=== PATIENT | female | born 1955 | race Caucasian/White ===

== ENCOUNTER 2017-09-01 21:36 | Emergency (ER) | payer BC ==
[2017-09-01 21:44] VITALS: RESP 18
[2017-09-01] MEDS ORDERED: MORPHINE SULFATE 5 MG/ML SYRINGE IVP STA (22:20)
[2017-09-01] MEDS ORDERED: HYDROmorphone 1 MG/ML 1 ML SYRINGE IVP STA (22:25)
--- NOTE | 2017-09-01 22:25 | ED ---
General Adult HPI - General Chief complaint: Chest Pain Stated complaint: chest pain Time Seen by Provider: 09/01/17 21:50 Source: patient, family, RN notes reviewed, old records reviewed Mode of arrival: ambulatory Limitations: no limitations - History of Present Illness Initial comments: 62-year-old female presents for evaluation of chest pain. Pain is been present for approximately 4 hours. With sudden in onset, woke patient from sleep. Describes the pain as constant, sharp in nature. Pain is worse with deep inspiration. Substernal and left-sided chest as well as epigastrium. Pain is severe at the time my evaluation. Denies nausea or diaphoresis. Denies fever or chills. Denies cough. Patient was well prior to the onset of this pain with no symptoms. Patient has past medical history of hypertension hypercholesterolemia, no known history of coronary artery disease. She does have history of venous occlusion in her lower extremity status post stenting, this was secondary to arterial compression of the vein. Patient is not on blood thinners at this time, she does take daily aspirin. - Related Data Home Medications Medication Instructions Recorded Confirmed Aspirin [Adult Low Dose Aspirin EC] 81 mg PO DAILY 09/01/17 09/01/17 Levothyroxine Sodium [Synthroid] 100 mcg PO DAILY 09/01/17 09/01/17 Multivitamin/Iron/Folic Acid 1 tab PO DAILY 09/01/17 09/01/17 [Centrum Adults Tablet] Rosuvastatin [Crestor] 10 mg PO MOWEFR 09/01/17 09/01/17 Valsartan [Diovan] 160 mg PO HS 09/01/17 09/01/17 diphenhydrAMINE HCL [Benadryl] 25 mg PO HS 09/01/17 09/01/17 Allergies Allergy/AdvReac Type Severity Reaction Status Date / Time Penicillins Allergy Rash/Hives Verified 09/01/17 22:09 adhesive tape AdvReac Rash/Hives Verified 09/01/17 22:09 Review of Systems ROS Statement: Those systems with pertinent positive or pertinent negative responses have been documented in the HPI. ROS Other: All systems not noted in ROS Statement are negative. Past Medical History Past Medical History: Hyperlipidemia, Hypertension, Thyroid Disorder History of Any Multi-Drug Resistant Organisms: None Reported Past Surgical History: Hysterectomy, Joint Replacement, Orthopedic Surgery Additional Past Surgical History / Comment(s): bilateral knee replace Past Psychological History: No Psychological Hx Reported Smoking Status: Never smoker Past Alcohol Use History: None Reported Past Drug Use History: None Reported General Exam Limitations: no limitations General appearance: alert, in no apparent distress Head exam: Present: atraumatic, normocephalic Eye exam: Present: normal appearance, PERRL ENT exam: Present: normal exam Neck exam: Present: normal inspection. Absent: tenderness, meningismus Respiratory exam: Present: normal lung sounds bilaterally. Absent: respiratory distress, wheezes Cardiovascular Exam: Present: regular rate, normal rhythm. Absent: rubs GI/Abdominal exam: Present: soft, tenderness (Epigastric tenderness to palpation ). Absent: guarding, rebound Extremities exam: Present: normal inspection, normal capillary refill. Absent: pedal edema, calf tenderness Back exam: Present: normal inspection, full ROM. Absent: tenderness Neurological exam: Present: alert, oriented X3, CN II-XII intact. Absent: motor sensory deficit Psychiatric exam: Present: normal affect, normal mood. Absent: anxious, flat affect Skin exam: Present: warm, dry, intact. Absent: cyanosis, diaphoretic Course Vital Signs 09/01/17 09/01/17 21:39 22:01 Temperature 98.6 F Pulse Rate 91 Pulse Rate [ 87 [employer] ] Respiratory 18 Rate Blood Pressure 152/64 O2 Sat by Pulse 99 Oximetry - Reevaluation(s) Reevaluation #1: 09/01/17 23:53 Chest x-ray reviewed and discussed with radiology, concern for intraperitoneal free air. CT is obtained for further evaluation. EKG Findings - EKG Comments: EKG Findings:: EKG shows normal sinus rhythm, ventricular rate 87, MA interval 156, QRS duration 84, QTC 421 no signs of ischemia Medical Decision Making - Medical Decision Making 62 female presenting with sudden onset epigastric and chest pain. Patient is tender in the epigastrium. Ultrasound obtained, negative for acute cholecystitis or gallstones. Chest x-ray shows no acute intrathoracic process does show free intraperitoneal air. This is discussed with the radiologist, he is uncertain recommends further imaging. CT is obtained, this does show intraperitoneal air no obvious source, there is a 2.5 cm dilated loop of small bowel, no signs of obstruction. Laboratory studies reveal elevated white blood cell count 13.6, stable hemoglobin, d-dimer is elevated, patient does also receive CT angiography which is negative for PE or acute findings. Troponin negative, large reds within normal limits. Case is discussed with general surgery on-call Dr. Ames, given history of previous bariatric surgery, she recommends transfer for higher level of care. Case discussed with Dr. Noel at [facility]. He will accept transfer for further evaluation and treatment. Diagnosis: Ruptured hollow viscus with free intraperitoneal air. - Lab Data Result diagrams: 09/01/17 21:55 09/01/17 21:55 Lab Results 09/01/17 09/01/17 09/01/17 Range/Units 21:55 21:55 21:55 WBC 13.6 H (3.8-10.6) k/uL RBC 5.16 (3.80-5.40) m/uL Hgb 15.2 (11.4-16.0) gm/dL Hct 49.0 H (34.0-46.0) % MCV 94.9 (80.0-100.0) fL MCH 29.4 (25.0-35.0) pg MCHC 31.0 (31.0-37.0) g/dL RDW 13.8 (11.5-15.5) % Plt Count 290 (150-450) k/uL Neutrophils % 81 % Lymphocytes % 13 % Monocytes % 3 % Eosinophils % 1 % Basophils % 1 % Neutrophils # 11.1 H (1.3-7.7) k/uL Lymphocytes # 1.8 (1.0-4.8) k/uL Monocytes # 0.4 (0-1.0) k/uL Eosinophils # 0.2 (0-0.7) k/uL Basophils # 0.1 (0-0.2) k/uL PT (9.0-12.0) sec INR (<1.2) APTT (22.0-30.0) sec D-Dimer (<0.60) mg/L FEU Sodium 140 (137-145) mmol/L Potassium 4.4 (3.5-5.1) mmol/L Chloride 103 (98-107) mmol/L Carbon Dioxide 26 (22-30) mmol/L Anion Gap 11 mmol/L BUN 21 H (7-17) mg/dL Creatinine 0.70 (0.52-1.04) mg/dL Est GFR (MDRD) Af Amer >60 (>60 ml/min/1.73 sqM) Est GFR (MDRD) Non-Af >60 (>60 ml/min/1.73 sqM) Glucose 112 H (74-99) mg/dL Calcium 10.0 (8.4-10.2) mg/dL Magnesium 1.7 (1.6-2.3) mg/dL Total Bilirubin 0.5 (0.2-1.3) mg/dL AST 31 (14-36) U/L ALT 40 (9-52) U/L Alkaline Phosphatase 93 (38-126) U/L Total Creatine Kinase 52 (30-135) U/L CK-MB (CK-2) 0.7 (0.0-2.4) ng/mL CK-MB (CK-2) Rel Index 1.3 Troponin I <0.012 (0.000-0.034) ng/mL NT-Pro-B Natriuret Pep pg/mL Total Protein 7.5 (6.3-8.2) g/dL Albumin 4.5 (3.5-5.0) g/dL Amylase 84 (30-110) U/L Lipase 185 (23-300) U/L 09/01/17 09/01/17 Range/Units 21:55 21:55 WBC (3.8-10.6) k/uL RBC (3.80-5.40) m/uL Hgb (11.4-16.0) gm/dL Hct (34.0-46.0) % MCV (80.0-100.0) fL MCH (25.0-35.0) pg MCHC (31.0-37.0) g/dL RDW (11.5-15.5) % Plt Count (150-450) k/uL Neutrophils % % Lymphocytes % % Monocytes % % Eosinophils % % Basophils % % Neutrophils # (1.3-7.7) k/uL Lymphocytes # (1.0-4.8) k/uL Monocytes # (0-1.0) k/uL Eosinophils # (0-0.7) k/uL Basophils # (0-0.2) k/uL PT 9.7 (9.0-12.0) sec INR 1.0 (<1.2) APTT 23.2 (22.0-30.0) sec D-Dimer 1.16 H (<0.60) mg/L FEU Sodium (137-145) mmol/L Potassium (3.5-5.1) mmol/L Chloride (98-107) mmol/L Carbon Dioxide (22-30) mmol/L Anion Gap mmol/L BUN (7-17) mg/dL Creatinine (0.52-1.04) mg/dL Est GFR (MDRD) Af Amer (>60 ml/min/1.73 sqM) Est GFR (MDRD) Non-Af (>60 ml/min/1.73 sqM) Glucose (74-99) mg/dL Calcium (8.4-10.2) mg/dL Magnesium (1.6-2.3) mg/dL Total Bilirubin (0.2-1.3) mg/dL AST (14-36) U/L ALT (9-52) U/L Alkaline Phosphatase (38-126) U/L Total Creatine Kinase (30-135) U/L CK-MB (CK-2) (0.0-2.4) ng/mL CK-MB (CK-2) Rel Index Troponin I (0.000-0.034) ng/mL NT-Pro-B Natriuret Pep 22 pg/mL Total Protein (6.3-8.2) g/dL Albumin (3.5-5.0) g/dL Amylase (30-110) U/L Lipase (23-300) U/L Critical Care Time Critical Care Time: Yes Total Critical Care Time: 35 Disposition Clinical Impression: Free intraperitoneal air Disposition: OTHER INSTITUTION NOT DEFINED Condition: Serious Referrals: Nonstaff,Physician [Primary Care Provider] - 1-2 days Time of Disposition: 23:56 - Out of Hospital Transfer - Req. Specs Out of Hospital Transfer - Requested Specifics: Other Emergency Center ([facility])
[2017-09-01 22:34] LABS: Basophils # (A) 0.1 k/uL (0-0.2); Basophils % (A) 1 %; Eosinophils # (A) 0.2 k/uL (0-0.7); Eosinophils % (A) 1 %; HGB 15.2 gm/dL (11.4-16.0); Lymphocytes # (A) 1.8 k/uL (1.0-4.8); Lymphocytes % (A) 13 %; MCH 29.4 pg (25.0-35.0); MCV 94.9 fL (80.0-100.0); Mean Platelet Volume 7.5; Monocytes # (A) 0.4 k/uL (0-1.0); Monocytes % (A) 3 %; Neutrophils # (A) 11.1 k/uL (1.3-7.7); Neutrophils % (A) 81 %; Platelet Count 290 k/uL (150-450); RBC 5.16 m/uL (3.80-5.40); RDW 13.8 % (11.5-15.5); WBC 13.6 k/uL (3.8-10.6)
[2017-09-01] MEDS ORDERED: RX INFO: IV CONTRAST WAS GIVEN 1 EACH MISC MISCELLANE PRN ×2 (22:39→22:53)
--- NOTE | 2017-09-01 22:42 | XR ---
EXAMINATION TYPE: XR chest 2V DATE OF EXAM: 09/01/2017 COMPARISON: NONE HISTORY: Chest pain TECHNIQUE: Frontal and lateral views of the chest are obtained. FINDINGS: Heart and mediastinum are normal. Lungs are clear. Costophrenic angles are clear. There ar e no hilar masses. There are chest leads. There is some lucency at the left the right hemidiaphragm t hat is suspicious for pneumoperitoneum. IMPRESSION: No cardiopulmonary disease. Possible pneumoperitoneum. This exam was discussed with YUNIER saab at 10:40 PM.
[2017-09-01 22:44] LABS: D-Dimer 1.16 mg/L FEU (<0.60)
[2017-09-01 22:45] LABS: ALT 40 U/L (9-52); AST 31 U/L (14-36); Albumin 4.5 g/dL (3.5-5.0); Alkaline Phosphatase 93 U/L (38-126); Amylase 84 U/L (30-110); Anion Gap 11 mmol/L; Blood Urea Nitrogen 21 mg/dL (7-17); Carbon Dioxide 26 mmol/L (22-30); Chloride 103 mmol/L (98-107); Glucose 112 mg/dL (74-99); Lipase 185 U/L (23-300); Magnesium 1.7 mg/dL (1.6-2.3); Potassium 4.4 mmol/L (3.5-5.1); Sodium 140 mmol/L (137-145); Total Bilirubin 0.5 mg/dL (0.2-1.3); Total Protein 7.5 g/dL (6.3-8.2)
[2017-09-01 22:49] LABS: Partial Thromboplastin Time 23.2 sec (22.0-30.0); Prothrombin Time 9.7 sec (9.0-12.0)
--- NOTE | 2017-09-01 23:02 | US ---
EXAMINATION TYPE: US gallbladder DATE OF EXAM: 09/01/2017 COMPARISON: NONE CLINICAL HISTORY: Chest/shoulder Pain. Difficult/limited exam due to large amount of overlying bowel gas EXAM MEASUREMENTS: Liver Length: 14.8 cm Gallbladder Wall: 0.2 cm CBD: 0.4 cm Right Kidney: 10.1 x 4.8 x 4.7 cm Pancreas: Obscured by bowel gas Liver: Limited visualization. Visualized portions wnl Gallbladder: wnl Evidence for sonographic Walters's sign: No CBD: wnl as visualized, distal portion obscured by bowel gas Right Kidney: Cystic area visualized measuring 1.5 x 1.4 x 1.3 cm IMPRESSION: No gallstones or dilated ducts. Small cyst in the right kidney. No evidence of right side d renal obstruction. No free fluid.
[2017-09-01 23:11] LABS: Creatine Kinase 52 U/L (30-135)
[2017-09-01 23:23] LABS: Creatine Kinase MB 0.7 ng/mL (0.0-2.4); Troponin I <0.012 ng/mL (0.000-0.034)
--- NOTE | 2017-09-01 23:27 | CT ---
EXAMINATION TYPE: CT abdomen pelvis w con DATE OF EXAM: 09/01/2017 COMPARISON: NONE HISTORY: No prior, Pt c/o sudden lt sided chest pain that radiates into her left shoulder and abdomen , Hx hypertension CT DLP: 1921.40 mGycm Automated exposure control for dose reduction was used. TECHNIQUE: Helical acquisition of images was performed from the lung bases through the pelvis. CONTRAST: Performed without Oral Contrast and with IV Contrast, patient injected with 100 mL of Omnipaque 350. FINDINGS: There is mild subsegmental atelectasis at the lung bases. There is no pleural effusion. There is pneumoperitoneum with air around the liver and splenic flexure of the colon. Liver shows no focal defect. Gallbladder appears normal. Spleen appears normal. There are surgical cl ips apparently from bariatric surgery. There is no sign of pancreatic mass. There is a 1.5 cm low-density left adrenal mass. There is a 2 cm cyst in the upper pole left kidney. There is no hydronephrosis. There is 2 cm cyst posterior right kidney. Ureters are not dilated. There is a stent in the left iliac vein. I see no intestinal wall thickening. There are no dilated lo ops. There is no ascites. Bladder distends smoothly. I see no bony destructive process. There are cli ps apparently from appendectomy. IMPRESSION: MINIMAL SUBSEGMENTAL ATELECTASIS AT THE LUNG BASES. THERE IS MILD PNEUMOPERITONEUM. SOURCE OF THE AIR IS NOT CLEAR. PREVIOUS APPARENT BARIATRIC SURGERY. THERE IS A LOOP OF SMALL BOWEL IN THE UPPER ABDOMEN THAT MEASURE S 2.5 CM CONSISTENT WITH MILD LOCALIZED ILEUS. I DO NOT SEE EVIDENCE FOR MECHANICAL BOWEL OBSTRUCTION . RENAL CORTICAL CYSTS. LOW-DENSITY LEFT ADRENAL LESION HAS A BENIGN APPEARANCE.
--- NOTE | 2017-09-01 23:29 | CT ---
EXAMINATION TYPE: CT angio chest DATE OF EXAM: 09/01/2017 11:23 PM COMPARISON: NONE HISTORY: No prior, Pt c/o sudden lt sided chest pain that radiates into her left shoulder and abdomen , elevated d-dimer R/O PE Hx hypertension CT DLP: 1921.40 mGycm Automated exposure control for dose reduction was used. CONTRAST: CTA scan of the thorax is performed with IV Contrast, patient injected with 100 mL of Omnipaque 350, pulmonary embolism protocol. There are 3-D post processed images.. FINDINGS: The lungs are clear of consolidation. There is mild subsegmental atelectasis at the lung bases. Thoracic aorta appears normal. There is no evidence of aneurysm or dissection. I see no filling defec ts in the pulmonary arteries. There is no mediastinal adenopathy. There are no hilar masses. The bony thorax is intact. IMPRESSION: NO EVIDENCE OF PULMONARY EMBOLISM. MINIMAL SUBSEGMENTAL ATELECTASIS OR SCARRING AT THE LUNG BASES. SC LD PNEUMOPERITONEUM IS NOTED.
[2017-09-02 00:11] VITALS: BP 146/64; PULSE 83; TEMP 99
[2017-09-02] MEDS ORDERED: HYDROmorphone 1 MG/ML 1 ML SYRINGE IVP STA (00:18)
== END 2017-09-02 00:40 | disposition short-term general hospital (02) ==
LOC: EC 21:36
DX: K66.8 Other specified disorders of peritoneum (principal); R07.9 Chest pain, unspecified; E78.5 Hyperlipidemia, unspecified; I10 Essential (primary) hypertension; E07.9 Disorder of thyroid, unspecified; Z53.8 Procedure and treatment not carried out for other reasons; Z88.0 Allergy status to penicillin; Z91.048 Other nonmedicinal substance allergy status; Z79.82 Long term (current) use of aspirin; Z79.899 Other long term (current) drug therapy
CPT/HCPCS: 36415; 93005; 85379; 83880; 80053; 82150; 82550; 82553; 83690; 83735; 84484; 85025; 85610; 85730; 71020; 76705; 71275; 74177; 99291; 96374; 96376; Q9967; J1170 ×2